=== PATIENT | female | born 1940 | race Caucasian/White ===

== ENCOUNTER 2020-08-07 11:02 | Inpatient (IN) | payer MEDICARE, MEDICAID ==
[2020-08-07] VITALS (7 sets, daily range): BP systolic 110–127; BP diastolic 32–47
[~2020-08-07] VITALS: Ht 157.5 cm; Wt 62.9 kg
[~2020-08-07 11:02] MED LIST: ALBU8.5H8 INH; APIX5TAB3 PO; ASPI-611 PO; FLAX100015 PO; FOLI1TAB16 PO; HYDR-4003 PO; LEVO125T8 PO; LOSA50TA64 PO; MULT-342 PO; OMEG1CAP2 PO; OMEP20TA5 PO; PREG100C55 PO; PROP10TA10 PO; THIA100T70 PO; vitamin B12 PO; vitamin D PO
[2020-08-07 16:22] LABS: BASOPHILS % (AUTO) 0.3 % (0-1); EOSINOPHILS # (AUTO) 0.4 X10'3 (0-0.9); EOSINOPHILS % (AUTO) 7.1 % (0-6); HEMATOCRIT 34.9 % (35.0-45.0); HEMOGLOBIN 11.7 g/dl (12.0-16.0); LYMPHOCYTES # (AUTO) 1.5 X10'3 (1.1-4.8); LYMPHOCYTES % (AUTO) 24.1 % (21-51); MEAN CORPUSCULAR HEMOGLOBIN 31.7 PG (27.0-31.0); MEAN CORPUSCULAR HGB CONC 33.5 g/dL (33.0-36.5); MEAN CORPUSCULAR VOLUME 94.8 FL (78-98); MEAN PLATELET VOLUME 6.8 FL (7.4-10.4); MONOCYTES # (AUTO) 0.7 X10'3 (0-0.9); MONOCYTES % (AUTO) 11.3 % (2-12); NEUTROPHILS # (AUTO) 3.5 X10'3 (1.8-7.7); NEUTROPHILS % (AUTO) 57.2 % (42-75); PLATELET COUNT 234 X10'3 (140-440); RED BLOOD COUNT 3.68 X10'6 (4.20-5.60); RED CELL DISTRIBUTION WIDTH 14.1 % (11.5-14.5); WHITE BLOOD COUNT 6.2 X10'3 (4.5-11.0)
[2020-08-07 16:30] LABS: PARTIAL THROMBOPLASTIN TIME 30 SECONDS (22-32)
[2020-08-07 16:31] LABS: ALANINE AMINOTRANSFERASE 20 U/L (12-78); ALBUMIN 3.5 G/DL (3.4-5.0); ALBUMIN/GLOBULIN RATIO 0.8 (1.1-1.5); ALKALINE PHOSPHATASE 110 IU/L (46-116); ANION GAP 8 (8-16); ASPARTATE AMINO TRANSFERASE 36 U/L (10-37); BILIRUBIN,TOTAL 0.5 MG/DL (0.1-1.0); BLOOD UREA NITROGEN 8 MG/DL (7-18); BUN/CREATININE RATIO 9.3 (6.6-38.0); CALCIUM 9.7 MG/DL (8.5-10.1); CHLORIDE 99 MMOL/L (99-107); CREATININE 0.86 MG/DL (0.40-0.90); GLUCOSE 97 MG/DL (70-104); POTASSIUM 4.8 MMOL/L (3.5-5.1); SODIUM 134 MMOL/L (135-145); TOTAL CARBON DIOXIDE 27.2 MMOL/L (24-32); TOTAL PROTEIN 7.8 G/DL (6.4-8.2); eGFR 63 ML/MIN
[2020-08-07] MEDS ORDERED: iohexol 350 MG/ML 50ML vial IV ONE (16:42)
[2020-08-07] MEDS ORDERED: iohexol 350MG/ML 100ml bottle IV ONE (16:43)
[2020-08-07] MEDS ORDERED: ondansetron/PF 4mg/2ml inj IV ONE (16:50)
[2020-08-07] MEDS ORDERED: morphine 2 MG/ML inj. syringe IV ONE (16:50)
[2020-08-07] MEDS ORDERED: heparin 25,000 UNIT/250ml bag 250 ML IV SCH ×2 (18:00→21:35)
[2020-08-07] MEDS ORDERED: heparin 10,000 units/1 ML INJ IV PRN ×2 (18:00→21:41)
[2020-08-07] MEDS ORDERED: heparin 10,000 units/1 ML INJ IV ONE (18:00)
[2020-08-07] MEDS ORDERED: AMOX-580 PO (18:16)
[2020-08-07] MEDS ORDERED: HYDR-3972 PO (18:16)
[2020-08-07] MEDS ORDERED: DULO30CA52 PO (18:16)
[2020-08-07] MEDS ORDERED: CARV12.545 PO (18:16)
[2020-08-07] MEDS ORDERED: CLOP75TA34 PO (18:16)
[2020-08-07] MEDS ORDERED: CHOL10008 PO (18:16)
[2020-08-07] MEDS ORDERED: BUDE10.22 PO (18:16)
[2020-08-07] MEDS ORDERED: ALBU17AE26 IH (18:16)
[2020-08-07] MEDS ORDERED: LEVO100T9 PO (18:16)
[2020-08-07] MEDS ORDERED: MONT10TA32 PO (18:16)
[2020-08-07] MEDS ORDERED: VIT1CAPS46 PO (18:18)
--- NOTE | 2020-08-07 18:38 | NUR ---
Confirmed with MD to use cardiac protocol for heparin.
[2020-08-07] MEDS ORDERED: midazolam 1 mg/ML 2ml injection ONE (19:08)
[2020-08-07] MEDS ORDERED: fentaNYL/PF 50MCG/1 ML 2ML syringe ONE (19:09)
[2020-08-07] MEDS ORDERED: iohexol 300mg/ml 100ml inj. ONE (19:11)
[2020-08-07] MEDS ORDERED: heparin 1,000 UNITS/NS 500ml 500 ML ONE (19:11)
[2020-08-07] MEDS ORDERED: LIDOcaine 1%/PF 5ML 10 MG/ML VIAL ONE (19:11)
[2020-08-07 19:13] LABS: BASOPHILS % (AUTO) 0.3 % (0-1); EOSINOPHILS # (AUTO) 0.3 X10'3 (0-0.9); HEMATOCRIT 33.5 % (35.0-45.0); HEMOGLOBIN 11.2 g/dl (12.0-16.0); LYMPHOCYTES # (AUTO) 1.3 X10'3 (1.1-4.8); LYMPHOCYTES % (AUTO) 18.7 % (21-51); MEAN CORPUSCULAR HEMOGLOBIN 31.7 PG (27.0-31.0); MEAN CORPUSCULAR HGB CONC 33.4 g/dL (33.0-36.5); MEAN PLATELET VOLUME 6.7 FL (7.4-10.4); MONOCYTES # (AUTO) 0.7 X10'3 (0-0.9); MONOCYTES % (AUTO) 9.9 % (2-12); NEUTROPHILS # (AUTO) 4.6 X10'3 (1.8-7.7); NEUTROPHILS % (AUTO) 66.1 % (42-75); PLATELET COUNT 227 X10'3 (140-440); RED BLOOD COUNT 3.53 X10'6 (4.20-5.60); RED CELL DISTRIBUTION WIDTH 14.3 % (11.5-14.5)
[2020-08-07] MEDS ORDERED: potassium Cl 20 mEq SR tablet PO PRN ×2 (19:20)
[2020-08-07] MEDS ORDERED: morphine 2 MG/ML inj. syringe IV PRN (19:20)
[2020-08-07] MEDS ORDERED: magnesium 4gm in 100ml NS 100 ML IV PRN (19:20)
[2020-08-07] MEDS ORDERED: potassium Cl 40MEQ/1/2NS 520ml 520 ML IV PRN ×2 (19:20)
[2020-08-07] MEDS ORDERED: ondansetron/PF 4mg/2ml inj IV PRN (19:20)
[2020-08-07] MEDS ORDERED: magnesium 2GM in 50ml NS 50 ML IV PRN (19:20)
[2020-08-07] MEDS ORDERED: magnesium Cl slow-release 64mg tablet PO PRN (19:20)
--- NOTE | 2020-08-07 19:25 | NUR ---
Anaya michael [phone], cell number [phone]
--- NOTE | 2020-08-07 19:30 | NUR ---
Patient in room PCU 3018. I have received report from vanessa rodriguez/randall rodriguez and had the opportunity to ask questions and assume patient care.
[2020-08-07] MEDS: K and/or MAG REPLACEMENT MC SCH (20:00)
[2020-08-07] MEDS: normal saline 1000ml 1,000 ML IV SCH (21:05)
--- NOTE | 2020-08-07 21:40 | NUR ---
pt came up with heparin at 800 units an hr. pt should have been on 1100 units per protocol. aptt was drawn. came back critical and paused for 2 hrs. restarted at 900units/ hr will redraw aptt at 0315 aam
--- NOTE | 2020-08-07 22:42 | NUR ---
attempted to do darting pt wanted to sleep
--- NOTE | 2020-08-07 23:11 | NUR ---
PAGED FOR CRITICAL LAB: PAGER ID: [phone] MESSAGE: Kym Rivers. Rm#[id number]. Critical Ptt 129, Heparin has been stopped. Jami PARISI. Ext#[id number]
--- NOTE | 2020-08-07 23:27 | NUR ---
upon assessment, left pedal pulse is found with doppler, r pedal pulse could not be found. the r leg however is starting to get warmer 6 inches lower prior to the initial assessment when the pt arrived on the unit. discharge planner Jean was also called to come and access the leg pulses. pt's heparin drip was also held starting at 2300 d/t a critical ptt.
--- NOTE | 2020-08-08 | NUR ---
vitals machine was having some malfunctioning problems. scrap charger Monroe notified and vitals that were retained were documented
--- NOTE | 2020-08-08 01:42 | NUR ---
reviewed heparin rate and protocol with charge histotechnologist jean to verify rate
[2020-08-08 02:00] VITALS: BP 126/41
[2020-08-08 04:02] LABS: BASOPHILS % (AUTO) 0.6 % (0-1); EOSINOPHILS # (AUTO) 0.3 X10'3 (0-0.9); EOSINOPHILS % (AUTO) 6.9 % (0-6); HEMATOCRIT 32.7 % (35.0-45.0); HEMOGLOBIN 10.9 g/dl (12.0-16.0); LYMPHOCYTES # (AUTO) 0.9 X10'3 (1.1-4.8); LYMPHOCYTES % (AUTO) 18.7 % (21-51); MEAN CORPUSCULAR HEMOGLOBIN 31.9 PG (27.0-31.0); MEAN CORPUSCULAR HGB CONC 33.4 g/dL (33.0-36.5); MEAN CORPUSCULAR VOLUME 95.6 FL (78-98); MONOCYTES # (AUTO) 0.5 X10'3 (0-0.9); MONOCYTES % (AUTO) 9.1 % (2-12); NEUTROPHILS # (AUTO) 3.3 X10'3 (1.8-7.7); NEUTROPHILS % (AUTO) 64.7 % (42-75); PLATELET COUNT 219 X10'3 (140-440); RED BLOOD COUNT 3.43 X10'6 (4.20-5.60); RED CELL DISTRIBUTION WIDTH 14.3 % (11.5-14.5)
[2020-08-08 04:18] LABS: ALANINE AMINOTRANSFERASE 21 U/L (12-78); ALBUMIN 2.9 G/DL (3.4-5.0); ALBUMIN/GLOBULIN RATIO 0.7 (1.1-1.5); ALKALINE PHOSPHATASE 95 IU/L (46-116); ANION GAP 9 (8-16); ASPARTATE AMINO TRANSFERASE 44 U/L (10-37); BILIRUBIN,TOTAL 0.4 MG/DL (0.1-1.0); BLOOD UREA NITROGEN 8 MG/DL (7-18); BUN/CREATININE RATIO 8.7 (6.6-38.0); CHLORIDE 100 MMOL/L (99-107); CREATININE 0.92 MG/DL (0.40-0.90); GLUCOSE 90 MG/DL (70-104); MAGNESIUM 1.5 MG/DL (1.5-2.4); POTASSIUM 4.1 MMOL/L (3.5-5.1); SODIUM 136 MMOL/L (135-145); TOTAL CARBON DIOXIDE 26.8 MMOL/L (24-32); TOTAL PROTEIN 6.8 G/DL (6.4-8.2); eGFR 59 ML/MIN
--- NOTE | 2020-08-08 04:19 | NUR ---
current ptt therapeutic, verified with chargeback analyst luis armando will keep currernt rate of 9ml/hr, 900units
--- NOTE | 2020-08-08 04:20 | NUR ---
next redraw will be at 10am this morning
--- NOTE | 2020-08-08 05:14 | NUR ---
as the nigh progressed the the patients leg started feeling warmer to the touch on the right site. the color of the r lower leg started improving and the pulse was faintly palpable on the r leg.
[2020-08-08 06:00] VITALS: BP 126/54
--- NOTE | 2020-08-08 06:28 | NUR ---
Problems reprioritized. Patient report given, questions answered & plan of care reviewed with sabas rodriguez.
[2020-08-08] MEDS ORDERED: duloxetine 30mg CAPSULE.DR PO SCH (08:00)
[2020-08-08] MEDS ORDERED: levoTHYROXINE 100mcg tablet PO SCH (08:00)
[2020-08-08] MEDS: K and/or MAG REPLACEMENT MC SCH (08:00)
[2020-08-08] MEDS ORDERED: pregabalin 25mg capsule PO SCH (08:00)
[2020-08-08] MEDS ORDERED: losartan 50mg tablet PO SCH (08:00)
[2020-08-08] MEDS ORDERED: carVEDilol 12.5mg tablet PO SCH (08:00)
[2020-08-08] MEDS ORDERED: budesonide 0.5mg/2ml UD nebule IH SCH (09:00)
[2020-08-08] MEDS ORDERED: albuterol 2.5 MG/3 ML nebule NEB SCH (09:00)
[2020-08-08] MEDS: normal saline 1000ml 1,000 ML IV SCH (10:25)
[2020-08-08 11:00] VITALS: BP 116/53
[2020-08-08] MEDS ORDERED: apixaban 5mg tablet PO SCH (11:45)
--- NOTE | 2020-08-08 13:00 | NUR ---
Pt discharged home with daughter. feet warm with pulses. Right pulse fainter than Left pulse on doppler but was present both tibial and dorsalis pedis. Pt states understanding of discharge paperwork. 2x IVs taken out. All belongings taken from room. No meds in pharmacy. Pt given 1x dose of eliquis and will restart tonight bid dosing and usual meds. Tele box taken off and returned. Pt instructed to come into ER or call 911 if anymore problems arise.
== END 2020-08-08 13:07 | disposition home or self-care (01) | DRG 253 ==
LOC: ER 11:03 → ED HOLD 19:20 → PCU 3S 21:46
PROVIDERS: ADMIT Family Medicine; ATTEND Family Medicine
PROC: 047K3ZZ Dilation of Right Femoral Artery, Percutaneous Approach (ICD-10-PCS; principal; 2020-08-07)
PROC: B41F1ZZ Fluoroscopy of Right Lower Extremity Arteries using Low Osmolar Contrast (ICD-10-PCS; 2020-08-07)
PROC: B41G1ZZ Fluoroscopy of Left Lower Extremity Arteries using Low Osmolar Contrast (ICD-10-PCS; 2020-08-07)
PROC: B4201ZZ Computerized Tomography (CT Scan) of Abdominal Aorta using Low Osmolar Contrast (ICD-10-PCS; 2020-08-07)
PROC: B4241ZZ Computerized Tomography (CT Scan) of Superior Mesenteric Artery using Low Osmolar Contrast (ICD-10-PCS; 2020-08-07)
PROC: B4281ZZ Computerized Tomography (CT Scan) of Bilateral Renal Arteries using Low Osmolar Contrast (ICD-10-PCS; 2020-08-07)
PROC: B42H1ZZ Computerized Tomography (CT Scan) of Bilateral Lower Extremity Arteries using Low Osmolar Contrast (ICD-10-PCS; 2020-08-07)
PROC: B4211ZZ Computerized Tomography (CT Scan) of Celiac Artery using Low Osmolar Contrast (ICD-10-PCS; 2020-08-07)
DX: I70.201 Unspecified atherosclerosis of native arteries of extremities, right leg (principal); J96.10 Chronic respiratory failure, unspecified whether with hypoxia or hypercapnia; E87.1 Hypo-osmolality and hyponatremia; E03.9 Hypothyroidism, unspecified; E78.5 Hyperlipidemia, unspecified; I25.10 Atherosclerotic heart disease of native coronary artery without angina pectoris; L03.032 Cellulitis of left toe; I10 Essential (primary) hypertension; J44.9 Chronic obstructive pulmonary disease, unspecified; Z79.01 Long term (current) use of anticoagulants; Z79.51 Long term (current) use of inhaled steroids; Z83.3 Family history of diabetes mellitus; Z82.49 Family history of ischemic heart disease and other diseases of the circulatory system; Z79.899 Other long term (current) drug therapy
CPT/HCPCS: 36415; 37224; 75635; 76937; 80053; 83735; 85025; 85610; 85730; 87081; 93926; 94640; 94760; 96374; 96375; 99152; 99153; 99285; A6213; C1725; C1760; C1769; C1894; G0378; J1644; J2250; J2270; J2405; J3010; J7030; J7626; Q9967

== ENCOUNTER 2021-03-24 06:31 | Day surgery (SDC) | payer MEDICARE, MEDICAID ==
[~2021-03-24] VITALS: Ht 154.9 cm; Wt 68.2 kg
[2021-03-24] VITALS (10 sets, daily range): BP systolic 110–155; BP diastolic 53–74
[~2021-03-24 06:31] MED LIST changes: +ALBU17AE26 IH; -ALBU8.5H8 INH; -ASPI-611 PO; +AZIT500T9 PO; +BUDE10.22 PO; +CARV12.545 PO; +CHOL10008 PO; +CLOP75TA34 PO; +DULO30CA52 PO; -FOLI1TAB16 PO; +FOLI1TAB27 PO; +HYDR-3972 PO; -HYDR-4003 PO; +LACT1CAP26 PO; +LEVO100T9 PO; -LEVO125T8 PO; +MONT-40 PO; -PROP10TA10 PO; -THIA100T70 PO; +VIT1CAPS46 PO; -vitamin B12 PO; -vitamin D PO
[2021-03-24] MEDS ORDERED: normal saline 1000ml 1,000 ML IV SCH ×2 (07:00→11:45)
[2021-03-24] MEDS ORDERED: ALBU18HF2 PO (07:22)
[2021-03-24] MEDS ORDERED: GABA-530 PO (07:22)
[2021-03-24] MEDS ORDERED: IPRA3AMP31 (07:22)
[2021-03-24] MEDS ORDERED: viteyes (07:33)
[2021-03-24] MEDS ORDERED: POTA99TA26 (07:33)
[2021-03-24] MEDS ORDERED: magnesium (07:33)
[2021-03-24 07:56] LABS: BASOPHILS # (AUTO) 0.1 X10'3 (0-0.2); BASOPHILS % (AUTO) 1.2 % (0-1); EOSINOPHILS # (AUTO) 0.4 X10'3 (0-0.9); EOSINOPHILS % (AUTO) 9.4 % (0-6); HEMATOCRIT 29.7 % (35.0-45.0); HEMOGLOBIN 9.9 g/dl (12.0-16.0); LYMPHOCYTES # (AUTO) 1.3 X10'3 (1.1-4.8); LYMPHOCYTES % (AUTO) 27.5 % (21-51); MEAN CORPUSCULAR HEMOGLOBIN 27.8 PG (27.0-31.0); MEAN CORPUSCULAR HGB CONC 33.3 g/dL (33.0-36.5); MEAN CORPUSCULAR VOLUME 83.2 FL (78-98); MONOCYTES # (AUTO) 0.6 X10'3 (0-0.9); MONOCYTES % (AUTO) 13.1 % (2-12); NEUTROPHILS # (AUTO) 2.3 X10'3 (1.8-7.7); NEUTROPHILS % (AUTO) 48.8 % (42-75); PLATELET COUNT 226 X10'3 (140-440); RED BLOOD COUNT 3.56 X10'6 (4.20-5.60); RED CELL DISTRIBUTION WIDTH 16.3 % (11.5-14.5); WHITE BLOOD COUNT 4.7 X10'3 (4.5-11.0)
[2021-03-24] MEDS ORDERED: LIDOcaine 1% 30ml preserv. free vial IJ STA (07:56)
[2021-03-24 08:17] LABS: ANION GAP 9 (8-16); BLOOD UREA NITROGEN 11 MG/DL (7-18); BUN/CREATININE RATIO 13.3 (6.6-38.0); CALCIUM 9.3 MG/DL (8.5-10.1); CHLORIDE 92 MMOL/L (99-107); CREATININE 0.83 MG/DL (0.40-0.90); GLUCOSE 90 MG/DL (70-104); POTASSIUM 4.8 MMOL/L (3.5-5.1); SODIUM 124 MMOL/L (135-145); TOTAL CARBON DIOXIDE 22.6 MMOL/L (24-32); eGFR 66 ML/MIN
[2021-03-24] MEDS ORDERED: midazolam 1 mg/ML 2ml injection ONE ×2 (08:26→09:53)
[2021-03-24] MEDS ORDERED: fentaNYL/PF 50MCG/1 ML 2ML syringe ONE ×2 (08:27→09:53)
[2021-03-24] MEDS ORDERED: heparin 1,000 UNITS/NS 500ml 500 ML ONE (08:27)
[2021-03-24] MEDS ORDERED: iohexol 300mg/ml 100ml inj. ONE (08:27)
[2021-03-24 09:08] LABS: ALBUMIN 3.6 G/DL (3.4-5.0)
--- NOTE | 2021-03-24 16:44 | NUR ---
Right groin dressing changed and clean dry intact after slow sitting up and walk. Pressure dressing reapplied to secure and patient and daughter taught instructions if any further bleeding. Pt getting dressed and dressing still clean and dry.
== END 2021-03-24 16:50 | disposition home or self-care (01) ==
LOC: SSTAY O 06:31
PROVIDERS: ATTEND Radiology Vascular & Interventional Radiology
DX: I70.211 Atherosclerosis of native arteries of extremities with intermittent claudication, right leg (principal); I70.92 Chronic total occlusion of artery of the extremities; I48.91 Unspecified atrial fibrillation; Z98.890 Other specified postprocedural states; Z87.891 Personal history of nicotine dependence; Z72.89 Other problems related to lifestyle; Z83.3 Family history of diabetes mellitus; Z82.49 Family history of ischemic heart disease and other diseases of the circulatory system
CPT/HCPCS: 36415; 37229; 75625; 75710; 80048; 85025; 85347; 85610; 99152; 99153; C1725; C1760; C1769; C1885; C1894; J1644; J2250; J3010; J7030; Q9967; 75630; A6213

== ENCOUNTER 2021-12-28 06:16 | Day surgery (SDC) | payer MEDICARE, MEDICAID ==
[~2021-12-28] VITALS: Ht 154.9 cm; Wt 65.9 kg
[2021-12-28] VITALS (8 sets, daily range): BP systolic 102–149; BP diastolic 47–60
[~2021-12-28 06:16] MED LIST changes: -ALBU17AE26 IH; +ALBU18HF2 PO; -AZIT500T9 PO; -BUDE10.22 PO; -CARV12.545 PO; -DULO30CA52 PO; +GABA-530 PO; -HYDR-3972 PO; +IPRA3AMP31; -LACT1CAP26 PO; -MONT-40 PO; -MULT-342 PO; +OMEP20TA43 PO; -OMEP20TA5 PO; +POTA99TA26; -PREG100C55 PO; +magnesium; +viteyes
[2021-12-28] MEDS ORDERED: normal saline 1000ml 1,000 ML IV PRN (06:45)
[2021-12-28] MEDS ORDERED: LOSA25TA41 PO (07:10)
[2021-12-28] MEDS ORDERED: EVOL140P3 SQ (07:10)
[2021-12-28] MEDS ORDERED: CARV12.545 PO (07:10)
[2021-12-28] MEDS ORDERED: NITR0.4T48 (07:10)
[2021-12-28] MEDS ORDERED: HYDR-3972 PO (07:10)
[2021-12-28] MEDS ORDERED: FURO40TA4 PO (07:10)
[2021-12-28] MEDS ORDERED: PREG100C55 (07:13)
[2021-12-28] MEDS ORDERED: symbicort (07:15)
[2021-12-28] MEDS ORDERED: ROSU10TA28 PO (07:15)
[2021-12-28] MEDS ORDERED: Sodium Chloride (07:15)
[2021-12-28] MEDS ORDERED: CALCIUM (07:19)
[2021-12-28] MEDS ORDERED: iron (07:19)
[2021-12-28] MEDS ORDERED: OSTEO BI FLEX (07:19)
[2021-12-28] MEDS ORDERED: B COMPLEX (07:19)
[2021-12-28] MEDS ORDERED: Probiotic (07:19)
[2021-12-28] MEDS ORDERED: ASPI-1265 PO (07:19)
[2021-12-28] MEDS ORDERED: [UNRECOGNIZED DRUG - OTHER] (07:19)
[2021-12-28 07:40] LABS: BASOPHILS % (AUTO) 0.6 % (0-1); EOSINOPHILS # (AUTO) 0.4 X10'3 (0-0.9); EOSINOPHILS % (AUTO) 6.2 % (0-6); HEMATOCRIT 28.5 % (35.0-45.0); HEMOGLOBIN 9.6 g/dl (12.0-16.0); LYMPHOCYTES # (AUTO) 1.8 X10'3 (1.1-4.8); LYMPHOCYTES % (AUTO) 25.3 % (21-51); MEAN CORPUSCULAR HEMOGLOBIN 31.9 PG (27.0-31.0); MEAN CORPUSCULAR HGB CONC 33.7 g/dL (33.0-36.5); MEAN CORPUSCULAR VOLUME 94.6 FL (78-98); MEAN PLATELET VOLUME 6.5 FL (7.4-10.4); MONOCYTES # (AUTO) 0.7 X10'3 (0-0.9); MONOCYTES % (AUTO) 9.6 % (2-12); NEUTROPHILS # (AUTO) 4.2 X10'3 (1.8-7.7); NEUTROPHILS % (AUTO) 58.3 % (42-75); PLATELET COUNT 212 X10'3 (140-440); RED BLOOD COUNT 3.02 X10'6 (4.20-5.60); RED CELL DISTRIBUTION WIDTH 13.4 % (11.5-14.5); WHITE BLOOD COUNT 7.1 X10'3 (4.5-11.0)
[2021-12-28 07:51] LABS: ALBUMIN 2.9 G/DL (3.4-5.0); ANION GAP 9 (8-16); BLOOD UREA NITROGEN 14 MG/DL (7-18); BUN/CREATININE RATIO 17.1 (6.6-38.0); CALCIUM 9.2 MG/DL (8.5-10.1); CHLORIDE 103 MMOL/L (99-107); CREATININE 0.82 MG/DL (0.40-0.90); GLUCOSE 110 MG/DL (70-104); POTASSIUM 4.4 MMOL/L (3.5-5.1); SODIUM 138 MMOL/L (135-145); TOTAL CARBON DIOXIDE 26.5 MMOL/L (24-32); eGFR 67 ML/MIN
[2021-12-28 07:52] LABS: APTT 33 SECONDS (22-32)
[2021-12-28] MEDS ORDERED: LIDOcaine 1%/PF 5ML 10 MG/ML VIAL ONE ×2 (08:15)
[2021-12-28] MEDS ORDERED: fentaNYL/PF 50MCG/1 ML 2ML syringe ONE ×2 (08:15→11:11)
[2021-12-28] MEDS ORDERED: midazolam 1 mg/ML 2ml injection ONE (08:15)
[2021-12-28] MEDS ORDERED: iohexol 350MG/ML 100ml bottle IV ONE (08:15)
[2021-12-28] MEDS ORDERED: diphenhydrAMINE 50 mg/ml inj ONE (08:17)
[2021-12-28] MEDS ORDERED: DEXMEDETOMIDINE IN 0.9 % NACL 50 ML IV ONE ×2 (08:17→09:14)
[2021-12-28] MEDS ORDERED: heparin 25,000 UNIT/250ml bag 0 ML IV ONE (08:18)
[2021-12-28] MEDS ORDERED: heparin 1,000 UNITS/NS 500ml 500 ML ONE (08:24)
[2021-12-28] MEDS ORDERED: nitroGLYCERIN-Tridil 50MG/D5W 250 ML IV ONE (08:25)
[2021-12-28] MEDS ORDERED: heparin 1,000unit/ml 10ml vial 10 ML ONE ×2 (08:25→10:08)
--- NOTE | 2021-12-28 08:58 | NUR ---
Pt left unit for procedure
[2021-12-28] MEDS ORDERED: normal saline 1000ml 1,000 ML IV SCH (13:35)
--- NOTE | 2021-12-28 15:43 | NUR ---
1445 Pt was able to void into bedpan, approx 350ml clear yellow
== END 2021-12-28 16:40 | disposition home or self-care (01) ==
LOC: SSTAY O 06:16
PROVIDERS: ATTEND Radiology Vascular & Interventional Radiology
DX: I70.202 Unspecified atherosclerosis of native arteries of extremities, left leg (principal); I25.10 Atherosclerotic heart disease of native coronary artery without angina pectoris; E11.9 Type 2 diabetes mellitus without complications; I25.2 Old myocardial infarction; Z87.891 Personal history of nicotine dependence; Z72.89 Other problems related to lifestyle; Z79.899 Other long term (current) drug therapy; Z79.01 Long term (current) use of anticoagulants
CPT/HCPCS: 36415; 37229; 80048; 85025; 85347; 85610; 85730; 99152; 99153; C1725; C1760; C1769; C1885; C1894; J1200; J1644; J3010; J3490; J7030; J7040; Q9967; A4620; A6213; J2250

== ENCOUNTER 2022-01-28 09:56 | Outpatient (CLI) | payer MEDICARE, MEDICAID ==
[~2022-01-28 09:56] MED LIST changes: +ASPI-1265 PO; +B COMPLEX; +CALCIUM; +CARV12.545 PO; -CHOL10008 PO; -CLOP75TA34 PO; +EVOL140P3 SQ; -FLAX100015 PO; -FOLI1TAB27 PO; +FURO40TA4 PO; -GABA-530 PO; +HYDR-3972 PO; +LOSA25TA41 PO; -LOSA50TA64 PO; +NITR0.4T48; +OSTEO BI FLEX; -POTA99TA26; +PREG100C55; +Probiotic; +ROSU10TA28 PO; +Sodium Chloride; +[UNRECOGNIZED DRUG - OTHER]; +iron; -magnesium; +symbicort; -viteyes
[2022-01-28 10:44] LABS: CLARITY,URINE CLEAR (Clear); GLUCOSE, URINE NEGATIVE (Neg); KETONES,URINE NEGATIVE (Neg); LEUKOCYTE ESTERASE ,URINE NEGATIVE (Neg); NITRITES, URINE NEGATIVE (Neg); OCCULT BLOOD,URINE NEGATIVE (Neg); PROTEIN,URINE NEGATIVE (Neg); UROBILINOGEN,URINE 0.2 E.U/dL (0.2-1.0)
[2022-01-28 10:44] LABS: BASOPHILS % (AUTO) 0.6 % (0-1); EOSINOPHILS # (AUTO) 0.6 X10'3 (0-0.9); HEMATOCRIT 32.8 % (35.0-45.0); HEMOGLOBIN 11.1 g/dl (12.0-16.0); LYMPHOCYTES # (AUTO) 2.1 X10'3 (1.1-4.8); LYMPHOCYTES % (AUTO) 31.7 % (21-51); MEAN CORPUSCULAR HEMOGLOBIN 31.2 PG (27.0-31.0); MEAN CORPUSCULAR HGB CONC 33.9 g/dL (33.0-36.5); MEAN PLATELET VOLUME 6.6 FL (7.4-10.4); MONOCYTES # (AUTO) 0.7 X10'3 (0-0.9); MONOCYTES % (AUTO) 10.2 % (2-12); NEUTROPHILS # (AUTO) 3.2 X10'3 (1.8-7.7); NEUTROPHILS % (AUTO) 48.5 % (42-75); PLATELET COUNT 218 X10'3 (140-440); RED BLOOD COUNT 3.57 X10'6 (4.20-5.60); RED CELL DISTRIBUTION WIDTH 13.5 % (11.5-14.5); WHITE BLOOD COUNT 6.7 X10'3 (4.5-11.0)
[2022-01-28 10:47] LABS: COLOR,URINE STRAW (Yellow); UA COLLECTION TYPE CLN CATCH MIDSTREAM
[2022-01-28 11:12] LABS: ALANINE AMINOTRANSFERASE 24 U/L (12-78); ALBUMIN 3.5 G/DL (3.4-5.0); ALBUMIN/GLOBULIN RATIO 0.9 (1.1-1.5); ALKALINE PHOSPHATASE 187 IU/L (46-116); ANION GAP 8 (8-16); ASPARTATE AMINO TRANSFERASE 27 U/L (10-37); BILIRUBIN,TOTAL 0.4 MG/DL (0.1-1.0); BLOOD UREA NITROGEN 13 MG/DL (7-18); BUN/CREATININE RATIO 13.4 (6.6-38.0); CALCIUM 9.4 MG/DL (8.5-10.1); CHLORIDE 95 MMOL/L (99-107); CHOL/HDL RATIO 1.1 (0.00-4.99); CHOLESTEROL 108 MG/DL (0-200); CREATININE 0.97 MG/DL (0.40-0.90); GLUCOSE 108 MG/DL (70-104); HDL CHOLESTEROL 96 MG/DL (35-60); LDL CHOLESTEROL 11 MG/DL (50-100); POTASSIUM 4.3 MMOL/L (3.5-5.1); SODIUM 130 MMOL/L (135-145); TOTAL CARBON DIOXIDE 27.1 MMOL/L (24-32); TOTAL PROTEIN 7.6 G/DL (6.4-8.2); TRIGLYCERIDES 31 MG/DL (20-135); eGFR 55 ML/MIN
== END 2022-01-28 23:59 | disposition home or self-care (01) ==
LOC: RAD 09:56
PROVIDERS: ATTEND Family Medicine
DX: K76.89 Other specified diseases of liver (principal); R10.84 Generalized abdominal pain
CPT/HCPCS: 36415; 76700; 80053; 80061; 81003; 84439; 84443; 85025

== ENCOUNTER 2022-04-28 13:57 | Outpatient (CLI) | payer MEDICARE, MEDICAID | END 2022-04-28 23:59 | disposition home or self-care (01) | LOC: VAS 13:57 | PROVIDERS: ATTEND Family Medicine | DX: I70.203 Unspecified atherosclerosis of native arteries of extremities, bilateral legs (principal); I77.1 Stricture of artery | CPT/HCPCS: 93922; 93926 ==

== ENCOUNTER 2022-10-24 12:07 | Outpatient (CLI) | payer MEDICARE, MEDICAID ==
[~2022-10-24 12:07] MED LIST changes: -ALBU18HF2 PO; +APIX2.5T PO; -NITR0.4T48; +NITR0.4T48 SL; -OMEP20TA43 PO; -OSTEO BI FLEX; +PANT-47 PO; -PREG100C55; +PREG150C46 PO; -iron; +iron PO; -symbicort
== END 2022-10-24 23:59 | disposition home or self-care (01) ==
LOC: RAD 12:07
PROVIDERS: ATTEND Family Medicine
DX: M86.172 Other acute osteomyelitis, left ankle and foot (principal); M79.89 Other specified soft tissue disorders; M62.58 Muscle wasting and atrophy, not elsewhere classified, other site
CPT/HCPCS: 73718

== ENCOUNTER 2023-06-27 14:13 | Outpatient (CLI) | payer MEDICARE, OTHER ==
[~2023-06-27 14:13] MED LIST changes: -PREG150C46 PO; +PREG150C47 PO
== END 2023-06-27 23:59 | disposition home or self-care (01) ==
LOC: RAD 14:13
PROVIDERS: ATTEND Family Medicine
DX: M86.9 Osteomyelitis, unspecified (principal); R60.0 Localized edema
CPT/HCPCS: 73718

== ENCOUNTER 2023-11-28 11:44 | Outpatient (CLI) | payer MEDICARE, OTHER ==
[~2023-11-28 11:44] MED LIST changes: -ROSU10TA28 PO; +ROSU10TA72 PO
[2023-11-28] MEDS ORDERED: iohexol 300mg/ml 100ml inj. ONE (12:15)
== END 2023-11-28 23:59 | disposition home or self-care (01) ==
LOC: RAD 11:44
PROVIDERS: ATTEND Family Medicine
DX: R14.0 Abdominal distension (gaseous) (principal)
CPT/HCPCS: 74177; Q9967

== ENCOUNTER 2023-11-29 11:16 | Outpatient (CLI) | payer MEDICARE, OTHER | END 2023-11-29 23:59 | disposition home or self-care (01) | LOC: MRI 11:16 | PROVIDERS: ATTEND Family Medicine | DX: R79.89 Other specified abnormal findings of blood chemistry (principal) | CPT/HCPCS: 74181 ==

== ENCOUNTER 2024-12-27 09:22 | Outpatient (CLI) | payer MEDICARE, OTHER ==
--- NOTE | 2024-12-27 11:22 | RADIOLOGY REPORT ---
INDICATION: ELEVATED LFTS TECHNIQUE: Multiple real-time sonographic images of the abdomen were obtained. COMPARISON: MR MRI ABDOMEN on DOS: 11/29/23, CT CT ABDOMEN PELVIS on DOS: 11/28/23, ULTRASOUND OF ABDOMEN on DOS: 01/28/22, ULTRASOUND OF ABDOMEN on DOS: 05/06/20, US ABDOMEN COMPLETE on DOS: 12/26/19 FINDINGS: The liver is homogenous in echogenicity. The liver measures 14cm. No intrahepatic biliary ductal dilatation is noted. The gallbladder wall measures 0.2 cm and is unremarkable. No gallstones or sludge is seen. The common duct measures 0.3 cm and is unremarkable. No pericholecystic fluid is noted. The right kidney measures 10cm. No hydronephrosis. The pancreas is not well visualized due to obscuration from bowel gas. The visualized portions of the IVC and aorta are grossly unremarkable. IMPRESSION: Normal exam of the abdomen.
== END 2024-12-27 23:59 | disposition home or self-care (01) ==
LOC: RAD 09:22
PROVIDERS: ATTEND Family Medicine
DX: R94.5 Abnormal results of liver function studies (principal)
CPT/HCPCS: 76700